=== PATIENT | female | born 1960 | race Caucasian/White ===

== ENCOUNTER 2017-04-22 12:46 | Emergency (ER) | payer OTHER ==
[~2017-04-22] VITALS: Ht 167.6 cm; Wt 61.2 kg
[~2017-04-22 12:46] MED LIST: B-1100 MG PO; CEFD300 PO; CIPR500 PO; FAMO20 PO; FOLI1 PO; FURO20 PO; GEMF600 PO; HEART BURN MED; Inderal 20 mg T20 MG PO; Inderal40 MG; LACT10SY PO; LISI5 PO; MAGCHL64ER PO; MAGN84 PO; MAGOX 400400 MG PO; METO100ER PO; METO25 PO; METO50ER PO; MULVITMIND PO; NITR100CA PO; OMEP20ER PO; ONDA8 PO; Omeprazole20 M1 PO; PANT20 PO; PANT40 PO; POTASSIUM PHOSPHATE PO; POTCHL20ER PO; PRAV40 PO; PROM25 PO; SPIR25 PO; SPIR50 PO; THIA100 PO; TRAZ50 PO; Verotin-Gr Cap1 EACH PO
[2017-04-22 13:52] LABS: BASOPHILS ABSOLUTE AUTO 0.01 K/mm3 (0.00-0.23); BASOPHILS PERCENT AUTO 0 % (0-2); EOSINOPHILS ABSOLUTE AUTO 0.11 K/mm3 (0.00-0.68); EOSINOPHILS PERCENT AUTO 2 % (0-6); IMMATURE GRAN ABSOLUTE AUTO 0.02 K/mm3 (0.00-0.10); IMMATURE GRAN PERCENT AUTO 0 % (0-1); LYMPHOCYTES ABSOLUTE AUTO 1.06 K/mm3 (0.84-5.20); LYMPHOCYTES PERCENT AUTO 17 % (21-46); MONOCYTES PERCENT AUTO 16 % (4-13); Mean Corpuscular HGB Conc 30.5 g/dL (31.5-36.5); Mean Corpuscular Volume 95 fL (80-100); NEUTROPHILS ABSOLUTE AUTO 3.88 K/mm3 (1.96-9.15); NEUTROPHILS PERCENT AUTO 64 % (41-73); NRBC ABSOLUTE 0.03 K/mm3 (0.00-0.02); NRBC Auto 0.5 /100 WBC (0.0-0.2); RDW Coefficient Variation 27.3 % (11.7-14.2); RDW Standard Deviation 91.6 fL (35.1-46.3); Red Blood Cell Count 1.83 M/mm3 (3.80-5.20); White Blood Cell Count 6.08 K/mm3 (4.00-11.30)
[2017-04-22 13:56] LABS: Hematocrit 17.4 % (33.0-51.0); Hemoglobin 5.3 g/dL (11.5-16.0)
[2017-04-22 13:57] LABS: Platelet Count 44 K/mm3 (150-400)
[2017-04-22 14:11] LABS: Albumin, Blood 2.9 g/dL (3.4-5.0); Albumin/Globulin Ratio 0.6 (0.8-1.8); Bilirubin, Total 2.6 mg/dL (0.1-1.0); Bun/Creatinine Ratio 23.2 (12.0-20.0); Calcium, Blood 8.3 mg/dL (8.5-10.1); Creatinine, Blood 1.12 mg/dL (0.40-1.00); Globulin, Blood 5.1 g/dL (2.2-4.0); Potassium, Blood 2.6 mmol/L (3.5-5.5)
[2017-04-22 14:33] LABS: Magnesium, Blood 1.2 mg/dL (1.6-2.4)
[2017-04-22 15:05] LABS: Troponin I 0.073 ng/mL (0.000-0.040)
[2017-04-22 15:40] LABS: International Normalized Ratio 1.56; Prothrombin Time Results 16.4 Sec (9.7-11.5)
[2017-04-22] MEDS ORDERED: FURO40 PO (15:41)
[2017-04-22] MEDS ORDERED: Verotin-Gr Cap1 EACH PO (15:43)
[2017-04-22] MEDS ORDERED: VITAMIN B-1100 MG PO (15:44)
== END 2017-04-22 16:41 | disposition short-term general hospital (02) ==
LOC: ER 12:46
PROVIDERS: Emergency Medicine; Nurse Practitioner Family
DX: K92.2 Gastrointestinal hemorrhage, unspecified (principal); I10 Essential (primary) hypertension; Z91.030 Bee allergy status; Z79.899 Other long term (current) drug therapy; Z79.2 Long term (current) use of antibiotics; Z87.891 Personal history of nicotine dependence
CPT/HCPCS: 36415; 36430; 80053; 82272; 83735; 84484; 85025; 85610; 86850; 86900; 86901; 86923; 93005; 93010; 96365; 96366; 96368; 99285; C9113; J2001; J3475; J3480; J7030; J7050; P9016